=== PATIENT | female | born 1970 | race Caucasian/White ===

== ENCOUNTER → 2020-04-06 16:58 | Outpatient (CLI) | payer OTHER, SELFPAY ==
--- NOTE | 2020-04-06 17:01 | DI.MRI.S_ITS ---
PROCEDURE: MR FOREARM RT WO/W CON INDICATIONS: ANESTHESIA OF SKIN TECHNIQUE: Noncontrast coronal T1 spin echo and STIR, sagittal T1 spin echo with fat saturation and STIR, axial T1 spin echo and T2 fast spin echo with fat saturation. After the administration of contrast, axial/sagittal/coronal T1 spin echo with fat saturation through the right forearm. COMPARISON: None. FINDINGS: Image quality: Excellent. Bones: There is no marrow edema. No fracture or dislocation. Mild osteoarthritic changes along radial aspect of right wrist is seen. The overlying cortex appears intact. No abnormal intraosseous enhancement. Soft tissues: No soft tissue masses are visualized. The scanned muscles demonstrate normal overall bulk and internal signal. Subcutaneous tissues appear normal as well. No abnormal soft tissue enhancement. IMPRESSION: 1. No soft tissue mass or area of abnormal enhancement. No ganglion cyst formation. 2. No marrow signal abnormality. No forearm fracture or dislocation. No abnormal intraosseous enhancement. Very mild right wrist joint osteoarthritis. 3. Forearm muscles and tendons are normal in size and signal. Dictated by: Thompson Mims M.D. on 04/07/2020 at 10:45 Approved by: Thompson Mims M.D. on 04/07/2020 at 10:49
--- NOTE | 2020-04-06 17:02 | DI.MRI.S_ITS ---
PROCEDURE: MR HAND RT WO/W CON INDICATIONS: ANESTHESIA OF SKIN TECHNIQUE: Noncontrast coronal T1 spin echo and STIR, sagittal T1 spin echo with fat saturation and STIR, axial T1 spin echo and T2 fast spin echo with fat saturation. After the administration of contrast, axial/sagittal/coronal T1 spin echo with fat saturation through the right hand. COMPARISON: None. FINDINGS: Image quality: Excellent. Bones: Mild osteoarthritic changes are noted along radial aspect of right wrist and throughout MCP joints and interphalangeal joints with joint space narrowing and mild subchondral sclerosis. No marrow edema. No fracture or dislocation. Nonspecific subcortical cyst formation involving radial aspect of 3rd metacarpal head is seen. No definite bony erosion. No suspicious intraosseous lesion. No abnormal intraosseous enhancement. Soft tissues: There is fluid distending tendon sheath of flexor carpi radialis tendon at the level of proximal carpal row suggestive of low-grade tenosynovitis. Rest of the extensor and flexor tendons are grossly intact. No soft tissue masses are visualized. The scanned muscles demonstrate normal overall bulk and internal signal. Subcutaneous tissues appear normal as well. No abnormal soft tissue enhancement. IMPRESSION: 1. No enhancing soft tissue mass or fluid collection is seen. No ganglion cyst formation. 2. Mild osteoarthritic changes throughout right hand and wrist as above. Nonspecific subcortical cyst formation in radial aspect of 3rd metacarpal head. No definite bony erosion. No area of abnormal intraosseous enhancement. 3. Suggestion of very low-grade tenosynovitis involving flexor carpi radialis tendon at the level of proximal carpal row. Dictated by: Thompson Mims M.D. on 04/07/2020 at 10:32 Approved by: Thompson Mims M.D. on 04/07/2020 at 10:45
== END ==
PROVIDERS: Referring Provider Family Medicine; Visit Provider Family Medicine
DX: R20.0 Anesthesia of skin (principal)
CPT/HCPCS: 73220; A9579

== ENCOUNTER → 2022-03-09 16:09 | Outpatient (CLI) | payer OTHER, SELFPAY ==
--- NOTE | 2022-03-09 | DI.MRI.S_ITS ---
PROCEDURE: MR KNEE LT WO CON INDICATIONS: PAIN IN LEFT KNEE TECHNIQUE: Noncontrast sagittal PD fast spin echo and T2 fast spin echo with fat saturation, sagittal 3-D FLASH with fat saturation; coronal T1 spin echo and PD fast spin echo with fat saturation, and axial PD fast spin echo with fat saturation through the knee. COMPARISON: [facility], MR, KNEE WITHOUT CONTRAST, 11/11/2013, 18:28. FINDINGS: Image quality: Excellent. Menisci: There is peripheral displacement of medial meniscus bowing medial collateral ligament. Oblique tear involving posterior horn of medial meniscus is seen extending to inferior articulating surface. There is no focal lateral meniscal tear.. The meniscal root ligaments appear intact. Cruciate ligaments: The anterior and posterior cruciate ligaments appear intact. Medial structures: Low-grade medial collateral ligament sprain is seen. The posterior oblique ligament, semimembranosus tendon insertions, oblique popliteal ligament, and meniscocapsular junction appear intact. Visualized portions of the pes anserinus tendons appear normal. No abnormal bursal fluid. Lateral structures: The lateral collateral ligament, long and short heads of the biceps femoris tendon appear intact. The popliteus tendon appears normal; the popliteofibular ligament appears intact. Iliotibial band appears normal. Anterior structures: Distal quadriceps tendinosis at its superior patellar insertion is seen. Proximal patellar tendinosis at its inferior patellar insertion is also noted. Patellar alignment is normal. No femoral trochlear dysplasia or ventral trochlear prominence. No edema in the infrapatellar fat pad. Bones and cartilage: Marrow edema involving medial femoral condyle weight-bearing portion and adjacent medial tibial plateau weight-bearing portion is seen without discrete fracture line. Mild to moderate tricompartmental osteoarthritis and chondromalacia is noted most prominent in medial femoral tibial compartment with joint space narrowing, subchondral sclerosis and prominent medial peripheral marginal osteophyte formation. Joint space: There is small amount of joint fluid. Tiny popliteal cyst is seen. Normal appearing synovial plicae are incidentally noted. IMPRESSION: 1. Oblique tear involving posterior horn of medial meniscus extending to inferior articulating surface. No evidence of focal lateral meniscal tear. 2. Cruciate ligaments are intact. Low-grade MCL sprain. 3. Distal quadriceps and proximal patellar tendinosis at their patellar insertions. No tendon rupture. 4. [id number] tricompartmental osteoarthritis and chondromalacia most prominent in medial femoral tibial compartment. Mild contusion involving medial femoral tibial compartment. No fracture or dislocation. Small joint effusion, no gross loose bodies. Small popliteal cyst. Dictated by: Thompson Mims M.D. on 03/09/2022 at 20:17 Approved by: Thompson Mims M.D. on 03/09/2022 at 20:21
== END ==
PROVIDERS: Referring Provider Student in an Organized Health Care Education/Training Program; Visit Provider Student in an Organized Health Care Education/Training Program
DX: S83.242A Other tear of medial meniscus, current injury, left knee, initial encounter (principal); S83.412A Sprain of medial collateral ligament of left knee, initial encounter; M17.12 Unilateral primary osteoarthritis, left knee; M94.262 Chondromalacia, left knee; M71.22 Synovial cyst of popliteal space [Baker], left knee; M25.462 Effusion, left knee; M25.562 Pain in left knee
CPT/HCPCS: 73721

== ENCOUNTER 2023-02-06 19:20 | Emergency (ER) | payer OTHER, SELFPAY ==
[2023-02-06] VITALS (9 sets, daily range): BP systolic 126–143; BP diastolic 63–86; PULSE 88–109; RESP 20; TEMP 37; O2SAT 93–97; BMI 41.9
[2023-02-06] MEDS: ONDANSETRON 4 MG/2 ML INJ IV (20:27)
[2023-02-06 20:38] LABS: Add Manual Diff / Slide Review NO; Basophils Absolute Auto 0 /uL (0-100); Basophils Percent Auto 0.6 % (0-2); Eosinophils Absolute Auto 0 /uL (0-450); Eosinophils Percent Auto 0.3 % (2-4); Hematocrit 43.2 % (36-46); Hemoglobin 14.8 g/dL (12.0-16.0); Lymphocytes Absolute Auto 800 /uL (1100-4500); Lymphocytes Percent Auto 9.8 % (25-40); Mean Corpuscular HGB Conc 34.3 % (30-36); Mean Corpuscular Hemoglobin 30.8 PG (26-34); Mean Corpuscular Volume 89.9 fL (80-100); Monocytes Absolute Auto 600 /uL (0-900); Monocytes Percent Auto 6.7 % (3-14); Neutrophils Absolute Auto 7100 /uL (1500-7000); Neutrophils Percent Auto 82.6 % (50-75); Platelet Count 260 X10^3/uL (150-400); Red Cell Distribution Width 13.3 % (11.6-14.8); White Blood Cell Count 8.6 X10^3/uL (4.5-11.0)
[2023-02-06 20:55] LABS: Alanine Aminotransferase 22 IU/L (<35); Albumin 4.4 g/dL (3.5-5.0); Albumin Globulin Ratio 1.4 (1.0-2.8); Alkaline Phosphatase 99 U/L (38-126); Aspartate Aminotransferase 22 IU/L (14-36); BUN Creatinine Ratio 19.2 (6-22); Bilirubin Total 1.3 mg/dL (0.2-1.3); Blood Urea Nitrogen 15 mg/dL (7-17); Calcium 8.6 mg/dL (8.4-10.2); Carbon Dioxide 29 mmol/L (22-32); Chloride 98 mmol/L (98-107); Estimated Glomerular Filt Rate > 60 mL/min (>60); Globulin 3.2 g/dL (1.7-4.1); Glucose 159 mg/dL (70-100); HEMOLYSIS 25 (0-50); Lipase 56 U/L (23-300); Potassium 4.1 mmol/L (3.4-5.1); Sodium 135 mmol/L (137-145); Total Protein 7.6 g/dL (6.3-8.2)
[2023-02-06] MEDS: SODIUM CHLORIDE 0.9% 1,000 ML 1000 ML IV ×2 (21:28→22:53)
--- NOTE | 2023-02-06 22:21 | ED.NAVMDI ---
HPI - Nausea/Vomiting/Diarrhea General Chief complaint: Nausea/Vomiting/Diarrhea Stated complaint: N/V Time Seen by Provider: 02/06/23 22:21 Source: patient Mode of arrival: Family Vehicle History of Present Illness HPI Narrative: 52-year-old woman with a history of hypertension and type 2 diabetes presents with almost 24 hours of severe nausea vomiting and diarrhea and unable to keep any fluids or solids down. She notes that her had a similar episode last week that resolved within 24 hours. She does not describe any new foods and nobody else has been acutely ill in the last 24 hours. She is not complaining of chest pain, palpitations. She does note that she is having some diffuse abdominal pain from the workup vomiting. She has some mild loose stool with no blood. No fevers or cough. Related Data Home Medications Medication Instructions Recorded Confirmed Cetirizine Hydrochloride (Zyrtec) 0 PO * [place] DOSE/FREQUENCY ##0 03/22/08 FLUTICASONE 50MCG DES INH- 0 INH * DOSE/FREQUENCY ##0 03/22/08 (FLUTICASONE PROPIONATE) MULTIVITAMIN (Multivitamin 0 PO * DOSE/FREQUENCY ##0 03/22/08 -) Previous Rx's Medication Instructions Recorded ondansetron 4 mg disintegrating 4 mg PO Q8H PRN nausea and 02/06/23 tablet vomiting #10 tabs Allergies Allergy/AdvReac Type Severity Reaction Status Date / Time clindamycin Allergy Severe Anaphylaxis Verified 02/06/23 20:26 Sulfa (Sulfonamide Allergy Unknown Verified 02/06/23 20:24 Antibiotics) [SULFA (SULFONAMIDE ANTIBIOTICS)] Review of Systems Review of Systems Narrative: Remainder of complete review of systems is otherwise unremarkable except for that included in the HPI. Patient History Medical History (Updated 02/06/23 @ 23:55 by Beverly Gavin MD) Hypertension Type 2 diabetes mellitus Social History Smoking Status: Never smoker Smoking Status: Never smoker alcohol intake frequency: holidays/special occasions only Substance Use Type: does not use Exam Initial Vital Signs Initial Vital Signs: Vital Signs Temperature 98.6 F 02/06/23 19:30 Pulse Rate 104 H 02/06/23 19:30 Respiratory Rate 20 02/06/23 19:30 Blood Pressure 143/86 H 02/06/23 19:30 Pulse Oximetry 97 02/06/23 19:30 Oxygen Delivery Method Room Air 02/06/23 19:30 General: Healthy appearing, in no acute distress. Able to give a complete and coherent history. Well-nourished well-developed HEENT: Dry mucous membranes, normal sclera with reactive pupils, Respiratory: Lungs are clear to auscultation, no wheezing no rales no rhonchi. Full and symmetrical air movement Cardiac: Regular rate and rhythm no murmurs no bruits Abdomen: Soft, mild diffuse abdominal tenderness without rebound or guarding, good bowel tones, no flank pain Skin: Warm and dry, no rashes Neurologic: Grossly neurologically intact with no obvious asymmetries or abnormalities Extremities: No trauma, well perfused Psych: Cooperative, appropriate insight and affect Course Orders Ordered: ED Orders 02/06/23 19:45 EKG-12 Lead Stat 02/06/23 20:21 Complete Blood Count AUTO DIFF Stat Comprehensive Metabolic Panel Stat Lipase Stat Ondansetron HCl (Ondansetron 4 Mg Odt) 4 mg PO NOW PRN PRN Reason: Nausea And Vomiting Ondansetron HCl (Ondansetron 4 Mg/2 Ml Inj) 4 mg IV NOW PRN PRN Reason: Nausea And Vomiting Last Admin: 02/06/23 20:27 Dose: 4 mg Documented By: SB Discontinued Medications Sodium Chloride (Normal Saline 0.9%) 1,000 mls @ 1,000 mls/hr IV BOLUS ONE Stop: 02/06/23 22:18 Last Infusion: 02/06/23 22:57 Dose: 0 mls/hr Documented By: Admin: 02/06/23 21:28 Dose: 1,000 mls/hr Documented By: RENEA Sodium Chloride (Normal Saline 0.9%) 1,000 mls @ 1,000 mls/hr IV BOLUS ONE Stop: 02/06/23 23:40 Last Infusion: 02/06/23 23:47 Dose: 0 mls/hr Documented By: Admin: 02/06/23 22:53 Dose: 1,000 mls/hr Documented By: RENEA Ketorolac Tromethamine (Ketorolac 30 Mg/Ml Vial) 15 mg IV NOW ONE Stop: 02/06/23 22:42 Last Admin: 02/06/23 22:52 Dose: 15 mg Documented By: RL Metoclopramide HCl (Metoclopramide 10 Mg/2 Ml Inj) 10 mg IV NOW ONE Stop: 02/06/23 22:42 Last Admin: 02/06/23 22:52 Dose: 10 mg Documented By: RENEA Ondansetron HCl (Ondansetron 4 Mg Odt Prepack) 1 bottle MISC SEEINSTR ONE Stop: 02/06/23 22:42 Last Admin: 02/06/23 22:53 Dose: 1 bottle Documented By: RENEA Vital Signs Vital signs: Vital Signs - 8 hr 02/06/23 19:30 Temperature 98.6 F Pulse Rate 104 H Respiratory Rate 20 Blood Pressure 143/86 H Pulse Oximetry 97 Oxygen Delivery Method Room Air MDM - Nausea/Vomiting/Diarrhea Lab Data 02/06/23 20:21 02/06/23 20:21 Labs: Lab Results 02/06/23 02/06/23 Range/Units 20:21 20:21 WBC 8.6 (4.5-11.0) X10^3/uL RBC 4.80 (4.0-5.2) X10^6/uL Hgb 14.8 (12.0-16.0) g/dL Hct 43.2 (36-46) % MCV 89.9 (80-100) fL MCH 30.8 (26-34) PG MCHC 34.3 (30-36) % RDW 13.3 (11.6-14.8) % Plt Count 260 (150-400) X10^3/uL Neut % (Auto) 82.6 H (50-75) % Lymph % (Auto) 9.8 L (25-40) % [place] % (Auto) 6.7 (3-14) % Eos % (Auto) 0.3 L (2-4) % Baso % (Auto) 0.6 (0-2) % Neut # (Auto) 7100 H (8428-8953) /uL Lymph # (Auto) 800 L (3992-8458) /uL [place] # (Auto) 600 (0-900) /uL Eos # (Auto) 0 (0-450) /uL Baso # (Auto) 0 (0-100) /uL Sodium 135 L (137-145) mmol/L Potassium 4.1 (3.4-5.1) mmol/L Chloride 98 (98-107) mmol/L Carbon Dioxide 29 (22-32) mmol/L BUN 15 (7-17) mg/dL Creatinine 0.78 (0.52-1.04) mg/dL Estimated GFR > 60 (>60) mL/min BUN/Creatinine Ratio 19.2 (6-22) Glucose 159 H (70-100) mg/dL Calcium 8.6 (8.4-10.2) mg/dL Total Bilirubin 1.3 (0.2-1.3) mg/dL AST 22 (14-36) IU/L ALT 22 (<35) IU/L Alkaline Phosphatase 99 (38-126) U/L Total Protein 7.6 (6.3-8.2) g/dL Albumin 4.4 (3.5-5.0) g/dL Globulin 3.2 (1.7-4.1) g/dL Albumin/Globulin Ratio 1.4 (1.0-2.8) Lipase 56 (23-300) U/L MDM Narrative Medical decision making narrative: CC: Nausea vomiting diarrhea. Acute issue, uncertain prognosis Complicating co-morbidities: hypertension, type 2 DM Data collected from: patient, Differential considered: food poisoning, viral enteritis, bowel obstruction Exam documented above, pertinent findings include: Mild diffuse abdominal pain. Nontoxic appearing. Clearly no surgical abdomen. Lab Test results independently reviewed as above. Pertinent findings: CBC is unremarkable. White count is 8.6 she does have a slight left shift. No significant anemia Chemistries show sodium at 1:35 a.m., glucose of 159, creatinine is 0.78 Lipase is unremarkable Treatments: 2 L of IV fluid, IV Zofran, IV Reglan Re-evaluations: Patient is feeling significantly better. She is able to walk to the bathroom and finally needs to void. She is been able to tolerate sips of water and crackers Discussion: 52-year-old woman with almost 24 hours of severe nausea vomiting and diarrhea. Suspect that this is a viral etiology given that her had similar findings a couple of days ago. This does not appear to be acute food related nausea and vomiting. No evidence of acute surgical abdomen, acute coronary syndrome, bowel obstruction or alternative explanation that would require further workup or hospitalization at this time. Findings reviewed in detail with the patient she is feeling much better and safe for discharge home Discharge Plan Departure Patient Disposition: Home Clinical Impression: Gastroenteritis, Vomiting and diarrhea Instructions: DI for Viral Gastroenteritis -- Adult Activity Restrictions/Additional Instructions: Thank you for coming in today I suspect that you have a virus that is causing the nausea and vomiting. This is based on the fact that your had similar symptoms last week. Your blood work is quite reassuring. There is no evidence of bacterial infection, severe anemia, heart attack, kidney failure renal failure or significant electrolyte abnormalities You are given 2 L of fluid, Zofran and Reglan in the emergency department and were feeling significantly better. I am discharging you home with a small prescription for Zofran, an anti nausea medication, to help should nausea return in prevent additional ER visits. If you find that you are getting worse or develop any new symptoms, please feel free to return to the emergency department for further evaluation. Prescriptions: New ondansetron 4 mg tablet,disintegrating 4 mg PO Q8H PRN (Reason: nausea and vomiting) Qty: 10 0RF No Action Cetirizine Hydrochloride (Zyrtec) 0 PO * [place] DOSE/FREQUENCY Qty: 0 FLUTICASONE 50MCG DES INH- (FLUTICASONE PROPIONATE) 0 INH * [place] DOSE/FREQUENCY Qty: 0 MULTIVITAMIN (Multivitamin -) 0 PO * [place] DOSE/FREQUENCY Qty: 0 Referrals: ProviderHemal [Primary Care Provider] - Stand Alone Forms: Patient Portal/API
[2023-02-06] MEDS: KETOROLAC 30 MG/ML VIAL 15 MG IV (22:52)
[2023-02-06] MEDS: METOCLOPRAMIDE 10 MG/2 ML INJ IV (22:52)
[2023-02-06] MEDS: ONDANSETRON 4 MG ODT PREPACK 1 BOTTLE MISC (22:53)
== END 2023-02-07 00:05 | disposition home or self-care (01) ==
PROVIDERS: Emergency Provider Emergency Medicine
DX: K52.9 Noninfective gastroenteritis and colitis, unspecified (principal); R11.2 Nausea with vomiting, unspecified
CPT/HCPCS: 36415; 80053; 83690; 85025; 93005; 93010; 96361; 96374; 96375; 99284; J1885; J2405; J2765

== ENCOUNTER → 2024-01-24 17:42 | Outpatient (CLI) | payer OTHER, SELFPAY | PROVIDERS: Visit Provider Physician Assistant Surgical | DX: J02.9 Acute pharyngitis, unspecified (principal) | CPT/HCPCS: 87070 ==